=== PATIENT | male | born 1945 | race Caucasian/White ===

== ENCOUNTER 2016-05-04 10:23 | Outpatient (CLI) | payer MEDICARE, BC ==
[~2016-05-04] VITALS: Ht 180.3 cm; Wt 81.8 kg
--- NOTE | ~2016-05-04 | HEMODYNAMI ---
PATIENT:JONNA LOPEZ JR MEDICAL RECORD: [id number] : 43 LOCATION:[facility] ADMISSION DATE: 05/04/16 Generatedon:05/04/201613:39 Patient name: JONNA LOPEZ Patient #: [id number] SSN: [id number] : 1945 Date of study: 05/04/2016 Page: Of Hemodynamic Procedure Report Patient Data Patient Demographics Procedure consent was obtained First Name: JONNA Gender: Male Last Name: JESSICA Suffix: Patient #: [id number] : 1945 Age: 70 year(s) SSN: [id number] Race: Unknown Additional ID: [id number] Contact details [address]: [address] [place] [address] State: [place] City: [place] Zip code: [address] Past Medical History Allergies: No known allergies Admission Admission Data Admission Date: 05/04/2016 Admission Time: 10:23 Arrival Date: 05/04/2016 Arrival Time: 0:00 Admit Source: Other Insurance Payor: Medicare, Private health insurance Height (in.): 62 BSA: 1.83 (m2) Height (cm.): 157.48 BMI: 32.92 (kg/m2) Weight (lbs.): 180 Weight (kg.): 81.65 Lab Results Lab Result Date: 05/04/2016 Lab Result Time: 0:00 Biochemistry Name Units Result Min Max BUN mg/dl 33 --(----)-* 7 18 Creatinine mg/dl 1.4 --(----)*- 0.6 1.3 CBC Name Units Result Min Max Hemoglobin g/dl 12.5 *-(----)-- 13.5 17.5 Procedure Procedure Types Cath Procedure Diagnostic Procedure LHC LHC w/Coronaries PCI Procedure Coronary Stent Initial Miscellaneous Procedures Moderate Sedation up to 15 minutes Moderate Sedation up to 30 minutes Procedure Description Procedure Date Procedure Date: 05/04/2016 Procedure Start Time: 13:13 Procedure End Time: 13:35 Procedure Staff Name Function Fran Gross MD Performing Physician Nehal Maria RT Scrub Jackie Landaverde RN Nurse Jennie Burgos RT Monitor Procedure Data Cath Procedure Fluoroscopy Diagnostic fluoroscopy Total fluoroscopy Time: 4.4 time: 4.4 min min Diagnostic fluoroscopy Total fluoroscopy dose: 405 dose: 405 mGy mGy Contrast Material Contrast Material Type Amount (ml) Isovue 300 97 Entry Location Entry Primary Successful Side Size Upsize Upsize Entry Closure Succes sful Closure Location (Fr) 1 (Fr) 2 (Fr) Remarks Device Remarks Femoral Right 5 Fr 6 Fr Exoseal artery Short Estimated blood loss: 10 ml Diagnostic catheters Device Type Used For End Catheter Placement Cordis 5Fr JL 4.0 Procedure Catheter (MP) Cordis 5Fr 3DRC Catheter Procedure (MP) Cordis 5Fr Pigtail Procedure Catheter (MP) Procedure Complications No complications Procedure Medications Medication Administration Route Dosage Oxygen NC 2 l/min Lidocaine 2% added to field 20 Heparin Flush Bag added to field 2 bags (1000units/500ml NS) 0.9% NaCl I.V. 100 ml/hr Versed I.V. 1 mg Fentanyl I.V. 50 mcg Versed I.V. 1 mg Fentanyl I.V. 50 mcg Fentanyl I.V. 50 mcg Heparin Bolus I.V. 8000 units Fentanyl I.V. 50 mcg Plavix P.O. 600 mg Hemodynamics Rest BSA: 1.83 (m2) HGB: 12.5 (g/dl) O2 Consumption: Estimated: 208.42 (ml/min) O2 Co nsumption indexed: Estimated:113.89 (ml/min/m) Heart Rate: 66 (bpm) Pressure Samples Time Site Value (mmHg) Purpose Heart Use Rate(bpm) 13:17 AO 158/85(116) Snapshot 75 13:23 LV 149/31,40 Snapshot 72 13:24 AO 158/78(111) Pullback 75 13:24 LV 192/5,40 Pullback 75 Gradients Valve Time Site 1 Site 2 Mean SEP/DFP Peak To Heart Use (mmHg) (sec/min) Peak Rate (mmHg) (bpm) Aortic 13:24 LV AO 1 1 34 75 192/5,40 158/78(111) Calculations Valve P-P Mean Valve Index Valve Source Name Gradient Area Flow (cm2) Aortic 34 1 34 1 Snapshots Pre Cath Intra NCS Post Cath Vital Signs Time Heart Resp SPO2 NIBP (mmHg) Rhythm Pain Sedation Rate (ipm) (%) Status Level (bpm) 13:02:54 75 18 99 166/93(127) NSR 0 (11) 10(A) , No pain 13:07:16 75 15 99 157/90(129) NSR 0 (11) 10(A) , No pain 13:11:42 75 19 100 151/84(112) NSR 0 (11) 10(A) , No pain 13:15:54 75 18 100 143/84(116) NSR 0 (11) 10(A) , No pain 13:20:12 75 20 99 147/86(123) NSR 0 (11) 9(A) , No pain 13:24:28 75 15 100 149/90(117) NSR 0 (11) 9(A) , No pain 13:28:44 75 17 100 139/93(132) NSR 0 (11) 9(A) , No pain 13:32:56 75 17 99 139/88(117) NSR 0 (11) 10(A) , No pain Medications Time Medication Route Dose Verified Delivered Reason Notes Effectiveness by by 13:01:04 Oxygen NC 2 Fran Buffie used for l/min Martin Landaverde RN procedure 13:01:10 Lidocaine 2% added 20ml Fran Fran for local to vial Martin Gross MD anesthetic field 13:01:17 Heparin Flush added 2 Fran Fran used for Bag to bags Martin Gross MD procedure (1000units/500ml field NS) 13:01:27 0.9% NaCl I.V. 100 Fran Buffie Per physician ml/hr Martin Landaverde RN 13:11:01 Versed I.V. 1 mg Fran Buffie for sedation Martin Landaverde RN 13:11:10 Fentanyl I.V. 50 Fran Buffie for sedation mcg Martin Landaverde RN 13:15:47 Versed I.V. 1 mg Fran Buffie for sedation Martin Landaverde RN 13:15:52 Fentanyl I.V. 50 Fran Buffie for sedation mcg Martin Landaverde RN 13:19:59 Fentanyl I.V. 50 Fran Buffie for sedation mcg Martin Landaverde RN 13:28:08 Heparin Bolus I.V. 8000 Fran Buffie for verifi ed units Martin Landaverde RN anticoagulation with dr gross 13:30:30 Fentanyl I.V. 50 Fran Mejia for sedation mcg Martin Landaverde RN 13:38:16 Plavix P.O. 600 Fran Mejia for mg Martin Landaverde RN antiplatelet therapy Procedure Log Time Note 12:45:55 Patient Height : 157.48 inches 12:46:02 Patient Weight : 81.65 lbs 12:46:02 Admit Source: Other 12:46:12 Insurance Payor : Private health insurance, Medicare 12:46:32 Arrival Date: 05/04/2016 12:00:00 AM 12:46:49 Diagnostic Cath Status : Elective 12:47:19 Jackie Landaverde RN sent for patient. Start room use. 12:47:20 Time tracking: Regular hours 12:47:25 Plan of Care:Hemodynamics will remain stable., Cardiac rhythm will remain stable., Comfort level will be maintained., Respiratory function will remain adequate., Patient/ family verbilizes understanding of procedure., Procedure tolerated without complication., Recovers from procedure without complications.. 12:47:51 H&P Date Dictated: 04/23/2016 Within 30 days and on chart., H&P Addendum completed by physician on day of procedure. (MUST COMPLETE FOR ALL OUTPATIENTS). 12:50:14 Patient received from Outpatients to CCL 3 Alert and oriented. Tansferred to table in Supine position. 12:50:26 Warm blankets applied, and jt hugger turned on for patient comfort. 12:50:29 Correct patient and procedure confirmed by team. 12:50:31 Signed procedure consent form obtained from patient. 12:50:36 Pre-procedure instructions explained to patient. 12:50:38 Family in waiting room. 12:50:40 Patient NPO since Midnight. 12:51:22 Patient allergic to No known allergies 12:51:26 Is the patient allergic to Iodine/contrast media? No. 12:52:24 Lab Result : Hemoglobin 12.5 g/dl 12:52:24 Lab Result : Creatinine 1.4 mg/dl 12:52:24 Lab Result : BUN 33 mg/dl 12:59:33 Was the patient premedicated? No 12:59:36 Is patient on blood thinner?Yes 12:59:55 ACC The patient was administered the following blood thiners within the last 24 hours: Coumadin 13:00:11 Patient diabetic? Yes. 13:00:15 If diabetic: On Metformin? Yes 13:00:18 If on Metformin: Last Dose? 04/29/2016 13:00:24 Snore? Yes 13:00:26 Sleep apnea? No 13:00:35 Patient pain scale 0/10 ?. 13:00:48 IV patent on arrival in left forearm with 0.9% NaCl at [facility]. 13:00:55 Lab results completed and on chart. 13:00:59 Right groin area was prepped with chlora-prep and draped in sterile fashion 13:01:01 Alarms reviewed by R. N. 13:01:02 Sharps counted by scrub and verified by R.N. 13:01:04 Oxygen 2 l/min NC was given by Jackie Landaverde RN; used for procedure; 13:01:04 Physician paged 13:01:04 Physician arrived 13:01:06 --------ALL STOP TIME OUT------ 13:01:07 Final Timeout: patient, procedure, and site verified with staff and physician. All members of the team are in agreement. 13:01:09 Right groin site verified by team. 13:01:10 Lidocaine 2% 20ml vial added to field was given by Fran Gross MD; for local anesthetic; 13:01:13 Physical assessment completed. ASA score P 2 - A patient with mild systemic disease as per Fran Gross MD. 13:01:17 Heparin Flush Bag (1000units/500ml NS) 2 bags added to field was given by Fran Gross MD; used for procedure; 13:01:18 Sedation plan: IV Moderate Sedation Versed, Fentanyl 13:01:27 0.9% NaCl 100 ml/hr I.V. was given by Jackie Landaverde RN; Per physician; 13:01:31 Vital chart was started 13:01:50 Use device set Femoral Dx 13:01:52 Acist Syringe opened to sterile field. 13:01:52 Bag Decanter opened to sterile field. 13:01:53 Medline Cath Pack opened to sterile field. 13:01:54 Terumo 5Fr [place] Sheath opened to sterile field. 13:01:55 St Trace 260cm J .035 wire opened to sterile field. 13:01:56 Acist Hand Control opened to sterile field. 13:01:57 Acist Manifold opened to sterile field. 13:01:58 Diagnostic Infinity 5Fr Multipack catheter opened to sterile field. 13:01:59 Tegaderm 4 x 4 opened to sterile field. 13:03:34 ECG and BP/O2 sat monitors applied to patient. 13:03:35 Baseline sample Acquired. 13:03:41 Rhythm: paced 13:03:43 Full Disclosure recording started 13:08:57 Procedure started. 13:10:52 Zero performed for pressure channel P1 13:10:56 Zero performed for pressure channel P1 13:11:01 Versed 1 mg I.V. was given by Jackie Landaverde RN; for sedation; 13:11:10 Fentanyl 50 mcg I.V. was given by Jackie Landaverde RN; for sedation; 13:13:35 Local anesthetic to right femoral artery with Lidocaine 2% by Fran Gross MD.INITIAL ACCESS ONLY 13:13:50 A 5 Fr sheath was inserted into the Right Femoral artery 13:15:47 Versed 1 mg I.V. was given by Jackie Landaverde RN; for sedation; 13:15:52 Fentanyl 50 mcg I.V. was given by Jackie Landaverde RN; for sedation; 13:17:25 A Cordis 5Fr JL 4.0 Catheter (MP) was advanced over the wire and used for Procedure. 13:17:27 LCA angiography performed. 13:19:35 Catheter removed. 13:19:49 A Cordis 5Fr 3DRC Catheter (MP) was advanced over the wire and used for Procedure. 13:19:59 Fentanyl 50 mcg I.V. was given by Jackie Landaverde RN; for sedation; 13:20:55 RCA angiography performed. 13:21:05 Catheter removed. 13:23:29 A Cordis 5Fr Pigtail Catheter (MP) was advanced over the wire and used for Procedure. 13:23:37 LV gram done using WYLIE 13:24:23 EF : 60 % 13:24:26 Catheter removed. 13:25:21 Terumo 6Fr [place] Sheath opened to sterile field. 13:25:21 Fewzion BasixCompak Inflation Kit opened to sterile field. 13:25:22 Zhang BMW [place] 2 J-tip 300cm 0.014 guide wir opened to sterile field. 13:25:22 High Pressure Extension Tubing (Gross) opened to sterile field. 13:25:23 Cordis 6FR XBLAD 3.5 guide catheter opened to sterile field. 13:25:27 Proceeding to intervention. 13:25:39 Sheath upsized to a 6 Fr Short. 13:25:55 6 Fr XBLAD guide catheter was inserted over the wire 13:26:00 BMW wire advanced. 13:28:08 Heparin Bolus 8000 units I.V. was given by Jackie Landaverde RN; for anticoagulation; verified with dr gross 13:30:30 Fentanyl 50 mcg I.V. was given by Jackie Landaverde RN; for sedation; 13:31:35 Inflation Number: 1 A BreconRidgetronic Integrity 3.5 X 18 stent was prepped and advanced across the Prox CX. The stent was deployed at 14 JULIANNA for 0:11 (min:sec). 13:32:10 Stent balloon re-inserted over wire. 13:32:28 Stent catheter was removed intact over wire. 13:32:29 Wire removed. 13:32:30 Guide catheter removed. 13:32:43 Cordis 6Fr Exoseal opened to sterile field. 13:32:57 Sheath removed intact; hemostasis achieved with Exoseal to the Right Femoral artery. 13:33:00 Procedure ended.(Physican Out) 13:33:21 Fluoroscopy time 04.40 minutes. 13:33:28 Fluoroscopy dose: 405 mGy 13:33:28 Flurop Dose total: 405 13:33:33 Contrast amount:Isovue 300 97ml. 13:33:35 Sharps counted by scrub and verified by R.N. 13:33:38 Insertion/operative site no bleeding no hematoma. 13:33:43 Post Procedure Pulses reassessed and unchanged 13:33:47 Post-procedure physical assessment completed. ASA score P 2 - A patient with mild systemic disease as per Fran Gross MD. 13:33:50 Post procedure rhythm: unchanged. 13:33:53 Estimated blood loss: 10 ml 13:34:12 Post procedure instruction explained to patient.Patient verbalizes understanding. 13:34:43 Procedure type changed to Cath procedure, Diagnostic procedure, LHC, LHC w/Coronaries, PCI procedure, Coronary Stent Initial, Miscellaneous Procedures, Moderate Sedation up to 15 minutes, Moderate Sedation up to 30 minutes 13:34:45 Procedure and supply charges have been captured, reviewed, submitted and are correct. 13:35:08 Procedure Complication : No complications 13:35:11 Vital chart was stopped 13:35:12 See physician's report for complete and final results. 13:35:15 Report given to Outpatients. 13:35:21 Patient transfered to Outpatients with Stretcher. 13:35:23 Procedure ended. 13:35:23 Full Disclosure recording stopped 13:35:26 End room use (Document Last) 13:38:16 Plavix 600 mg P.O. was given by Jackie Landaverde RN; for antiplatelet therapy; Intervention Summary Intervention Notes Time ActionType Lesion and Equipment Action# Pressure Duration Attributes Used 13:31:35 Place stent Prox CX Medtronic 1 14 00:11 Integrity 3.5 X 18 stent Device Usage Item Name Manufacture Quantity Catalog Hospital Part Current Minimal L ot# / Number Charge Number Stock Stock Serial# Code Acist Acist 1 18765 994039 180802 855809 20 Syringe Medical Systems Inc Bag Microtek 1 2002S 266904 11188 883216 5 DecSnapguide Medical Inc. Medline Cardinal 1 [id number] 593277 06179 885206 5 Cath Pack Health Terumo 5Fr Terumo 1 [id number] 193617 654579 875318 [address] Trace St Trace 1 887237 356874 471032 455511 30 260cm J .035 wire Acist Hand Acist 1 27793 969936 688855 760101 5 VitalMedix Medical Systems Inc Acist Acist 1 07691 236528 737216 328147 5 Endeka [employer] Inc Diagnostic Cardinal 1 [id number] 118732 60308 309816 30 Infinity Health 5Fr Multipack catheter Tegaderm 4 3M 1 1626W 433835 094449 749916 5 x 4 Cordis 5Fr Cardinal 1 456379 5 JL 4.0 Health Catheter (MP) Cordis 5Fr Cardinal 1 707363 5 3DRC Health Catheter (MP) Cordis 5Fr Cardinal 1 150765 5 Pigtail Health Catheter (MP) Terumo 6Fr Terumo 1 [id number] 857989 778588 852569 40 [place] Sheath Merit Merit 1 EX8339 707303 321124 916195 15 BasixCompak Medical Inflation Kit Zhang BMW Zhang 1 [id number] 496760 130406 098135 5 [place] 2 Vascular J-tip 300cm 0.014 guide wir High Merit 1 [id number] 443784 55479 614123 10 Pressure Medical Extension Tubing (Gross) Cordis 6FR Cardinal 1 [id number] 652232 302673 002589 10 XBLAD 3.5 Health guide catheter Medtronic Medtronic 1 [id number] 136492 327274 1 0 [id number] Integrity 3.5 X 18 stent Cordis 6Fr Cardinal 1 EX600 012141 020520 215327 10 Synchrony Signature Audit [place] Stage Time Signature Unsigned Intra-Procedure 05/04/2016 Jennie Burgos 1:39:54 PM RT(R) Signatures Monitor : Jennie Burgos Signature : RT Date : Time : [address] [address]
[2016-05-04] MEDS ORDERED: PROTONIX40 MG PO (11:11)
[2016-05-04] MEDS ORDERED: PROSCAR5 MG PO (11:13)
[2016-05-04] MEDS ORDERED: METOPROLOL TART50 MG PO (11:13)
[2016-05-04] MEDS ORDERED: NORVASC10 MG PO (11:14)
[2016-05-04] MEDS ORDERED: NORMODYNE / TR200 MG PO (11:14)
[2016-05-04] MEDS ORDERED: LOZOL1.25 MG PO (11:15)
[2016-05-04] MEDS ORDERED: DIOVAN320 MG PO (11:15)
[2016-05-04] MEDS ORDERED: PRAVACHOL20 MG PO (11:15)
[2016-05-04] MEDS ORDERED: FLOMAX0.4 MG PO (11:15)
[2016-05-04] MEDS ORDERED: MOBIC7.5 MG PO (11:16)
[2016-05-04] MEDS ORDERED: ZYLOPRIM300 MG PO (11:16)
[2016-05-04] MEDS ORDERED: GLUCOPHAGE500 MG PO (11:17)
[2016-05-04] MEDS ORDERED: COUMADIN5 MG PO (11:18)
[2016-05-04] MEDS ORDERED: COUMADIN3 MG PO (11:18)
[2016-05-04 11:22] VITALS: BP 179/88; Ht 180.3 cm; Wt 81.8 kg
[2016-05-04 11:26] LABS: BASOPHILS 0.4 % (0.0-2.0); EOSINOPHILS 3.5 % (0-7); HEMATOCRIT 36.9 % (42.0-54.0); HEMOGLOBIN 12.5 g/dL (13.5-17.5); IMMATURE GRANULOCYTES 0.2 % (0-5); LYMPHOCYTES 19.3 % (15-50); MCH 30.6 pg (26.0-34.0); MCHC 33.9 g/dL (31.0-37.0); MCV 90.2 fL (80.0-100.0); MONOCYTES 14.7 % (2-11); NEUTROPHILS 61.9 % (40-80); PLATELET COUNT 158 10x3/uL (130-400); RBC 4.09 10x6/uL (4.20-6.10); RDW 15.2 % (11.5-14.5); WBC 5.7 10x3/uL (4.8-10.8)
[2016-05-04 11:44] LABS: ANION GAP 16.6 mmol/L (8-16); CALCIUM 8.2 mg/dL (8.5-10.1); CARBON DIOXIDE 24.7 mmol/L (21.0-32.0); CREATININE - SERUM 1.4 mg/dL (0.6-1.3); POTASSIUM - SERUM 3.3 mmol/L (3.5-5.1)
[2016-05-04 11:46] LABS: INR 1.12 (0.85-1.17); PROTIME 14.2 SECONDS (11.6-15.0)
--- NOTE | 2016-05-04 14:38 | NUR ---
1410-RIGHT GROIN- FEMSTOP IN PLACE, NO BLEEDING OR HEMATOMA NOTED
--- NOTE | 2016-05-04 15:30 | NUR ---
1530 FEMSTOP REMOVED WITH NO BLEEDING NO HEMATOMA NOTED. VSS CHEST PAIN IS DENIED. 1600 R/GROIN REMAINS CDI NO BLEEDING NO HEMATOMA NOTED. FAMILY AT SIDE 1730 PIV REMOVED FROM LEFT ARM WITH DRESSING APPLIED. PATIENT UP TO GET DRESSED FOR DISCHARGE. R/GROIN REMAINS CDI NO BLEEDING NO HEMATOMA NOTED.
[2016-05-04] MEDS ORDERED: PLAVIX75 MG PO (17:48)
[2016-05-04] MEDS ORDERED: BAYER CHEWABLE81 MG PO (17:48)
--- NOTE | 2016-05-04 18:19 | NUR ---
1745-IV D'C WITH CATH TIP INTACT, RIGHT GROIN- CDI, NO HEMATOMA OR BLEEDING NOTED, WRITTEN AND VERBAL D'C INSTRUCTIONS GIVEN TO PT AND SON, DENIES CHEST PAIN OR FURTHUR NEEDS
--- NOTE | 2016-05-25 08:17 | OP ---
PATIENT NAME: JONAN LOPEZ JR MEDICAL RECORD: [id number] :43 LOCATION:D.CAT ADMISSION DATE: SURGEON: JOSUE YEN M.D. DATE OF OPERATION: 05/04/2016 REFERRING PHYSICIAN: Cristhian Mcmahan MD. PROCEDURES PERFORMED: 1. Selective coronary angiography. 2. Left heart catheterization with ventriculogram. 3. PTCA and stent placed to the circumflex. INDICATION: A 70-year-old gentleman presents with recurrent angina and history of coronary artery disease. EQUIPMENTS USED: A 5-[place] JL4, Gama right, pigtail catheter. INTERVENTION: A 6-[place] XB LAD guide, BMW guide wire, 3.5 x 18 mm Integrity stent. TECHNIQUE: A 5-[place] sheath was inserted in retrograde fashion in the right common femoral artery. Next, selective coronary angiography was performed in standard views using 5-[place] JL4 and Gama right. Left heart catheterization performed using pigtail catheter. CORONARY ANATOMY: 1. Left main: Left main trunk is moderate in caliber. It gives rise to the LAD and circumflex. There is no obstruction. 2. LAD: This is a moderate-caliber vessel extending to the apex. The proximal vessel has been stented. The stent is widely patent. There is no evidence of restenosis. 3. Circumflex: This vessel is large in caliber and dominant. The proximal vessel demonstrates a ruptured plaque, represents an 80% stenosis. 4. Right coronary: This vessel is small and nondominant and diffusely diseased. 5. Left ventricle: Left ventricle appears normal in size and function. No wall motion abnormalities are seen. Estimated ejection fraction is 55%. DESCRIPTION OF INTERVENTION: A 6-[place] sheath was inserted in retrograde fashion in the right common femoral artery. Next, 100 units per kilogram of heparin was infused. A 6-[place] XB LAD guide was advanced and engaged in the left main coronary artery. Next, a BMW guide wire was placed in the distal vessel. A 3.5 x 18 mm Integrity stent was placed across the stenosis and deployed at 14 atmospheres. Injection shows stent to be widely patent with 0% residual stenosis. There is marked improvement in distal flow. At this point, the wire and guide were removed. IMPRESSION: Successful percutaneous transluminal coronary angioplasty and stenting to the circumflex with 0% residual stenosis. TRANSINT:[id number] Voice Confirmation ID: [id number] DOCUMENT ID: [id number] OPERATIVE REPORT [id number] JONNA LOPEZ JR, TIMOTHY E M.D. at 0817 CC: [id number] DICTATION DATE: 05/04/16 1339 EXECUTIVE RECRUITER: 05/04/165 DEP CLI 05/04/16 [place] [id number] [place] [id number]
== END 2016-05-04 18:00 | disposition home or self-care (01) ==
LOC: D.CATH 10:23
PROVIDERS: Internal Medicine Cardiovascular Disease
DX: I25.119 Atherosclerotic heart disease of native coronary artery with unspecified angina pectoris (principal)

== ENCOUNTER → 2016-07-26 10:03 | Outpatient (CLI) | payer MEDICARE, BC ==
[2016-05-04 11:22] VITALS: BMI 25.1
[~2016-07-26 10:03] MED LIST: BAYER CHEWABLE81 MG PO; COUMADIN3 MG PO; COUMADIN5 MG PO; DIOVAN320 MG PO; FLOMAX0.4 MG PO; GLUCOPHAGE500 MG PO; LOZOL1.25 MG PO; METOPROLOL TART50 MG PO; MOBIC7.5 MG PO; NORMODYNE / TR200 MG PO; NORVASC10 MG PO; PLAVIX75 MG PO; PRAVACHOL20 MG PO; PROSCAR5 MG PO; PROTONIX40 MG PO; ZYLOPRIM300 MG PO
== END | disposition home or self-care (01) ==
LOC: D.CT 10:03
DX: I10 Essential (primary) hypertension (principal)

== ENCOUNTER 2016-09-06 08:01 | Outpatient (CLI) | payer MEDICARE, BC ==
[~2016-09-06] VITALS: Ht 177.8 cm; Wt 81.8 kg
--- NOTE | ~2016-09-06 | HEMODYNAMI ---
PATIENT:JONNA LOPEZ JR MEDICAL RECORD: [id number] : 43 LOCATION:[facility] ADMISSION DATE: 09/06/16 Generatedon:09/06/201610:12 Patient name: JONNA LOPEZ Patient #: [id number] SSN: [id number] : 1945 Date of study: 09/06/2016 Page: Of Hemodynamic Procedure Report Patient Data Patient Demographics Procedure consent was obtained First Name: JONNA Gender: Male Last Name: JESSICA Suffix: [facility] Initial: BRANDIN : 1945 Patient #: [id number] Age: 70 year(s) Race: Unknown SSN: [id number] Additional ID: [id number] Contact details [address]: [address] [place] [address] State: [place] City: [place] Zip code: [address] Past Medical History Allergies: No known allergies Admission Admission Data Admission Date: 09/06/2016 Admission Time: 8:01 Lab Results Lab Result Date: 09/06/2016 Lab Result Time: 0:00 Biochemistry Name Units Result Min Max Creatinine mg/dl 1.7 --(----)-* 0.6 1.3 CBC Name Units Result Min Max Hemoglobin g/dl 12.6 -*(----)-- 13.5 17.5 Procedure Procedure Types Cath Procedure Peripheral Cath Diagnostic Procedure Cath Peripheral Renal Arteriogram Peripheral vascular Intervention Stent Stent-Arterial Inititial Procedure Description Procedure Date Procedure Date: 09/06/2016 Procedure Start Time: 9:30 Procedure End Time: 10:11 Procedure Staff Name Function Leta Salgado RT Monitor Pro Castro RT Scrub Jackie Landaverde RN Nurse Fran Gross MD Performing Physician Procedure Data Cath Procedure Fluoroscopy Diagnostic fluoroscopy Total fluoroscopy Time: 9.1 time: 9.1 min min Diagnostic fluoroscopy Total fluoroscopy dose: 978 dose: 978 mGy mGy Contrast Material Contrast Material Type Amount (ml) Isovue 300 173 Entry Location Entry Primary Successful Side Size Upsize Upsize Entry Closure Gaytan ccessful Closure Location (Fr) 1 (Fr) 2 (Fr) Remarks Device Remarks Femoral Right 5 Fr 6 Fr Mechanical artery Short Compression Estimated blood loss: 10 ml Diagnostic catheters Device Type Used For End Catheter Placement Cordis Tempo 5Fr UF Abdominal catheter aortogram Diagnostic Infinity 5Fr Renal JR 4 catheter arteriography without flush -selective Procedure Complications No complications Procedure Medications Medication Administration Route Dosage Oxygen NC 2 l/min Lidocaine 2% added to field 20 Heparin Flush Bag added to field 2 bags (1000units/500ml NS) 0.9% NaCl I.V. 200 ml/hr Versed I.V. 1 mg Fentanyl I.V. 50 mcg Versed I.V. 0.5 mg Fentanyl I.V. 25 mcg Heparin Bolus I.V. 8000 units Versed I.V. 0.5 mg Fentanyl I.V. 25 mcg Brilinta P.O. 180 mg Hemodynamics Rest HGB: 12.6 (g/dl) Heart Rate: 92 (bpm) Snapshots Pre Cath Intra NCS Post Cath Vital Signs Time Heart Resp SPO2 NIBP (mmHg) Rhythm Pain Sedation Rate (ipm) (%) Status Level (bpm) 9:14:12 74 15 99 194/110(153) Paced 0 (11) 10(A) , No pain 9:18:43 74 17 100 189/105(155) Paced 0 (11) 10(A) , No pain 9:23:03 75 16 98 182/101(145) Paced 0 (11) 10(A) , No pain 9:27:21 75 17 97 166/92(144) Paced 0 (11) 10(A) , No pain 9:31:43 75 16 100 164/96(122) Paced 0 (11) 9(A) , No pain 9:35:59 75 16 96 171/102(142) Paced 0 (11) 9(A) , No pain 9:41:10 75 15 99 171/92(117) Paced 0 (11) 9(A) , No pain 9:45:30 76 15 99 163/85(111) Paced 0 (11) 9(A) , No pain 9:49:46 75 16 99 164/95(125) Paced 0 (11) 9(A) , No pain 9:54:09 75 16 100 153/84(113) Paced 0 (11) 9(A) , No pain 9:58:27 75 17 100 155/87(106) Paced 0 (11) 9(A) , No pain 10:02:39 74 16 97 154/90(118) Paced 0 (11) 9(A) , No pain 10:06:53 75 16 100 162/95(119) Paced 0 (11) 10(A) , No pain 10:11:13 74 12 99 174/94(130) Paced 0 (11) 10(A) , No pain Medications Time Medication Route Dose Verified Delivered Reason Notes Effectiveness by by 9:19:43 Oxygen NC 2 Fran Buffie used for l/min Martin Landaverde RN procedure 9:19:51 Lidocaine 2% added 20ml Fran Fran for local to vial Martin Gross MD anesthetic field 9:19:57 Heparin Flush added 2 Fran Fran used for Bag to bags Martin Gross MD procedure (1000units/500ml field NS) 9:20:06 0.9% NaCl I.V. 200 Fran Buffie Per physician ml/hr Martin Landaverde RN 9:27:11 Versed I.V. 1 mg Fran Buffie for sedation Martin Landaverde RN 9:27:17 Fentanyl I.V. 50 Fran Buffie for sedation mcg Martin Landaverde RN 9:36:00 Versed I.V. 0.5 Fran Buffie for sedation mg Martin Landaverde RN 9:36:05 Fentanyl I.V. 25 Fran Buffie for sedation mcg Martin Landaverde RN 9:51:26 Heparin Bolus I.V. 8000 Fran Buffie for verifi ed units Martin Landaverde RN anticoagulation with dr gross 9:59:06 Versed I.V. 0.5 Fran Buffie for sedation mg Martin Landaverde RN 9:59:10 Fentanyl I.V. 25 Fran Buffie for sedation mcg Martin Landaverde RN 10:07:12 Brilinta P.O. 180 Fran Buffie for mg Martin Landaverde RN antiplatelet therapy Procedure Log Time Note 9:04:10 Pro ZARAGOZA(R) (CV) sent for patient. Start room use. 9:04:11 Time tracking: Regular hours 9:04:15 Plan of Care:Hemodynamics will remain stable., Cardiac rhythm will remain stable., Comfort level will be maintained., Respiratory function will remain adequate., Patient/ family verbilizes understanding of procedure., Procedure tolerated without complication., Recovers from procedure without complications.. 9:08:19 Patient received from Pre/Post Procedure Room to CCL 2 Alert and oriented. Tansferred to table in Supine position. 9:08:21 Warm blankets applied, and jt hugger turned on for patient comfort. 9:08:21 Correct patient and procedure confirmed by team. 9:08:22 Signed procedure consent form obtained from patient. 9:08:23 ECG and BP/O2 sat monitors applied to patient. 9:08:24 Full Disclosure recording started 9:12:03 Vital chart was started 9:15:21 Rhythm: sinus rhythm 9:15:36 H&P Date Dictated: 08/27/2016 Within 30 days and on chart., H&P Addendum completed by physician on day of procedure. (MUST COMPLETE FOR ALL OUTPATIENTS). 9:15:37 Pre-procedure instructions explained to patient. 9:15:37 Pre-op teaching completed and patient verbalized understanding. 9:15:39 Family in waiting room. 9:15:40 Patient NPO since Midnight. 9:15:47 Patient allergic to No known allergies 9:15:50 Is the patient allergic to Iodine/contrast media? No. 9:15:51 Is patient on blood thinner?Yes 9:15:54 ACC The patient was administered the following blood thiners within the last 24 hours: Coumadin 9:16:42 COUMADIN LAST DOSE 09/01/16 9:16:44 Patient diabetic? No. 9:18:47 Previous problem with sedation/anesthesia? No ? 9:18:49 Snore? No 9:18:50 Sleep apnea? No 9:18:50 Deviated septum? No 9:18:51 Opens mouth fully? Yes 9:18:52 Sticks out tongue? Yes 9:18:53 Airway obstruction? No ? 9:18:57 Dentures? No ? 9:19:00 Pre procedure: right dorsailis pedis pulse 2+ Normal; easily identifiable; not easily obliterated 9:19:02 Patient pain scale 0/10 ?. 9:19:10 IV patent on arrival in left hand with 0.9% NaCl at [facility]. 9:19:30 Lab Result : Creatinine 1.7 mg/dl 9:19:30 Lab Result : Hemoglobin 12.6 g/dl 9:19:35 Lab results completed and on chart. 9:19:38 Right groin area was prepped with chlora-prep and draped in sterile fashion 9:19:39 Alarms reviewed by R. N. 9:19:39 Sharps counted by scrub and verified by R.N. 9:19:43 Oxygen 2 l/min NC was administered by Jackie Landaverde RN; used for procedure; 9:19:46 Acist Syringe opened to sterile field. 9:19:47 Bag Decanter opened to sterile field. 9:19:47 Medline Cath Pack opened to sterile field. 9:19:48 Terumo 5Fr [place] Sheath opened to sterile field. 9:19:49 St Trace 260cm J .035 wire opened to sterile field. 9:19:50 Acist Hand Control opened to sterile field. 9:19:50 Acist Manifold opened to sterile field. 9:19:51 Lidocaine 2% 20ml vial added to field was administered by Fran Gross MD; for local anesthetic; 9:19:51 Tegaderm 4 x 4 opened to sterile field. 9:19:57 Heparin Flush Bag (1000units/500ml NS) 2 bags added to field was administered by Fran Gross MD; used for procedure; 9:20:06 0.9% NaCl 200 ml/hr I.V. was administered by Jackie Landaverde RN; Per physician; 9:21:01 Baseline sample Acquired. 9:24:57 Zero performed for pressure channel P1 9:25:00 Final Timeout: patient, procedure, and site verified with staff and physician. All members of the team are in agreement. 9:25:02 Right groin site verified by team. 9:25:14 Physical assessment completed. ASA score P 2 - A patient with mild systemic disease as per Fran Gross MD. 9:25:19 Sedation plan: IV Moderate Sedation Versed, Fentanyl 9:27:11 Versed 1 mg I.V. was administered by Jackie Landaverde RN; for sedation; 9:27:17 Fentanyl 50 mcg I.V. was administered by Jackie Landaverde RN; for sedation; 9:30:42 Procedure started. 9:30:46 Local anesthetic to right femoral artery with Lidocaine 2% by Fran Gross MD.INITIAL ACCESS ONLY 9:33:09 A 5 Fr sheath was inserted into the Right Femoral artery 9:33:58 A Cordis Tempo 5Fr UF catheter was advanced over the wire and used for Abdominal aortogram. 9:35:06 Catheter removed. 9:35:32 A Diagnostic Infinity 5Fr JR 4 catheter was advanced over the wire and used for Renal arteriography without flush -selective. 9:36:00 Versed 0.5 mg I.V. was administered by Jackie Landaverde RN; for sedation; 9:36:05 Fentanyl 25 mcg I.V. was administered by Jackie Landaverde RN; for sedation; 9:39:29 Catheter removed. 9:46:21 [place] BuzzDash Luge Straight 300cm 0.014 guide wire opened to sterile field. 9:46:21 Merit BasixCompak Inflation Kit opened to sterile field. 9:46:27 Medtronic Launcher 6Fr MEGAN 90 guide catheter opened to sterile field. 9:47:58 Sheath upsized to a 6 Fr Short. 9:48:37 Procedure type changed to Cath procedure, Peripheral Cath Diagnostic Procedure, Cath Peripheral, Renal Arteriogram, Peripheral vascular Intervention, Stent, Stent-Arterial Inititial 9:48:43 High Pressure Extension Tubing (Martin) opened to sterile field. 9:49:15 6 Fr megan 90CM guide catheter was inserted over the wire 9:51:26 Heparin Bolus 8000 units I.V. was administered by Jackie Landaverde RN; for anticoagulation; verified with dr gross 9:51:35 LUGE wire advanced. 9:53:59 Inflation number: 1 A [place] Sci [place] 1.5 X 15 balloon was prepped and advanced across the Ostial Renal, Left, then inflated to 10 JULIANNA for 0:18 (min:sec). 9:54:45 Balloon removed over the wire. 9:57:09 Inflation number: 2 A [place] Sci [place] 2.0 X 12 balloon was prepped and advanced across the Ostial Renal, Left, then inflated to 10 JULIANNA for 0:37 (min:sec). 9:57:55 Balloon removed over the wire. 9:59:06 Versed 0.5 mg I.V. was administered by Jackie Landaverde RN; for sedation; 9:59:10 Fentanyl 25 mcg I.V. was administered by Jackie Landaverde RN; for sedation; 10:00:17 Inflation Number: 3 A Medtronic Integrity 2.5 X 12 stent was prepped and advanced across the Ostial Renal, Left. The stent was deployed at 10 JULIANNA for 0:14 (min:sec). 10:00:56 Stent catheter was removed intact over wire. 10:00:59 Wire removed. 10:01:00 Guide catheter removed. 10:01:09 Cordis 6Fr Exoseal opened to sterile field. 10:02:07 Sheath removed intact; hemostasis achieved with Mechanical Compression to the Right Femoral artery. 10:02:17 Procedure ended.(Physican Out) 10:02:34 Fluoroscopy time 09.10 minutes. 10:02:38 Fluoroscopy dose: 978 mGy 10:02:38 Flurop Dose total: 978 10:02:42 Contrast amount:Isovue 300 173ml. 10:02:43 Sharps counted by scrub and verified by R.N. 10:02:49 Insertion/operative site no bleeding no hematoma. 10:02:52 Post-op/insertion site Right Femoral artery dressed using a 4 x 4 and Tegaderm. 10:02:56 Post right femoral artery:stable, clean and dry 10:02:57 Post Procedure Pulses reassessed and unchanged 10:03:01 Post-procedure physical assessment completed. ASA score P 2 - A patient with mild systemic disease as per Fran Gross MD. 10:03:03 Post procedure rhythm: unchanged. 10:03:07 Estimated blood loss: 10 ml 10:03:09 Post procedure instruction explained to patient.Patient verbalizes understanding. 10:03:10 Patient needs reinforcement of post procedure teaching. 10:04:03 Procedure Complication : No complications 10:04:05 See physician's report for complete and final results. 10:05:12 Terumo 6Fr [place] Sheath opened to sterile field. 10:07:12 Brilinta 180 mg P.O. was administered by Jackie Landaverde RN; for antiplatelet therapy; 10:07:20 Procedure and supply charges have been captured, reviewed, submitted and are correct. 10:10:15 Post right femoral artery:bleeding 10:10:20 Femstop placed over the right femoral artery at 182 mmHg. Hemostasis achieved. 10:10:34 St Trace Femstop Arch Gold opened to sterile field. 10:10:56 Vital chart was stopped 10:11:08 Report given to Pre/Post Procedure Room. 10:11:13 Patient transfered to Pre/Post Procedure Room with Stretcher. 10:11:17 Procedure ended. 10:11:17 Full Disclosure recording stopped 10:12:14 End room use (Document Last) Intervention Summary Intervention Notes Time ActionType Lesion and Equipment Action# Pressure Duration Attributes Used 9:53:59 Inflate Ostial [place] 1 10 00:18 balloon Renal, Left Sci [place] 1.5 X 15 balloon 9:57:09 Inflate Ostial [place] 2 10 00:37 balloon Renal, Left Sci [place] 2.0 X 12 balloon 10:00:17 Place stent Ostial Medtronic 3 10 00:14 Renal, Left Integrity 2.5 X 12 stent Device Usage Item Name Manufacture Quantity Catalog Number Hospital Part Current Mini mal Lot# / Charge Number Stock Stock Serial# Code Acist Acist 1 [id number] 642898 [id number] 20 Syringe Medical Systems Inc Bag Microtek 1 2002S 806659 95827 383787 5 Zila [employer] Inc. Medline Cardinal 1 [id number] 496981 08943 893066 5 Cath Pack Health Terumo 5Fr Terumo 1 [id number] 307267 333697 354744 [address] [place] [address] Trace St Trace 1 692146 212575 952765 982189 30 260cm J .035 wire Acist Hand Acist 1 18278 915908 482262 747502 5 Clone Medical Systems Inc Acist Acist 1 83470 530684 150407 701900 5 Everest Software Medical Systems Inc Tegaderm 4 3M 1 1626W 623267 919832 378924 5 x 4 Cordis Cardinal 1 [id number] 366754 401644 606913 10 Tempo 5Fr Health UF catheter Diagnostic Cardinal 1 [id number] 597843 806343 003944 5 [employer] Entertainment 5Fr JR 4 catheter [place] Sci [place] 1 [id number] 248379 155511 521089 5 Amrit [employer] Scientific Straight 300cm 0.014 guide wire Merit Merit 1 [id number] 897195 877608 151430 15 Zounds [employer] Medical Inflation Kit Medtronic Medtronic 1 [id number] 15206 365322 1 Launcher 6Fr MEGAN 90 guide catheter High Merit 1 [id number] 579630 58245 120744 10 Pressure Medical Extension Tubing (Gross) [place] Sci [place] 1 [id number] 510912 479093 529169 1 [place] Scientific 1.5 X 15 balloon [place] Sci [place] 1 [id number] 099449 532156 007253 1 [place] Scientific 2.0 X 12 balloon Medtronic Medtronic 1 [id number] 152309 671398 3 [id number] Integrity 2.5 X 12 stent Cordis 6Fr Cardinal 1 [id number] 008430 035992 133455 10 [employer] Sol [employer]ations Terumo 6Fr Terumo 1 [id number] 032363 533667 845480 [address] [place] [address] Trace [address] Trace 1 [id number] 172439 282830 367274 5 Femstop Arch Gold Signature Audit Canon Stage Time Signature Unsigned Intra-Procedure 09/06/2016 Leta 10:12:24 AM Counts RT(R) Signatures Monitor : Leta Signature : Counts RT Date : Time : [id number] [place] [address]
[2016-09-06 08:18] VITALS: BP 178/95; Ht 177.8 cm; Wt 81.8 kg
[2016-09-06 08:38] LABS: BASOPHILS 0.2 % (0-2); EOSINOPHILS 3.3 % (0-7); HEMATOCRIT 37.9 % (42.0-54.0); HEMOGLOBIN 12.6 g/dL (13.5-17.5); IMMATURE GRANULOCYTES 0.5 % (0-5); LYMPHOCYTES 18.8 % (15-50); MCH 30.5 pg (26.0-34.0); MCHC 33.2 g/dL (31.0-37.0); MCV 91.8 fL (80.0-100.0); MEAN PLATELET VOLUME 10.3 fL (7.4-10.4); MONOCYTES 10.4 % (2-11); NEUTROPHILS 66.8 % (40-80); PLATELET COUNT 154 10x3/uL (130-400); RBC 4.13 10x6/uL (4.20-6.10); RDW 15.4 % (11.5-14.5); WBC 8.2 10x3/uL (4.8-10.8)
[2016-09-06] MEDS ORDERED: LYRICA75 MG PO (08:41)
[2016-09-06 08:48] LABS: CALCIUM 8.3 mg/dL (8.5-10.1); CARBON DIOXIDE 25.4 mmol/L (21.0-32.0); CREATININE - SERUM 1.7 mg/dL (0.6-1.3); POTASSIUM - SERUM 3.4 mmol/L (3.5-5.1)
[2016-09-06 09:25] LABS: INR 1.07 (0.85-1.17); PROTIME 13.8 SECONDS (11.6-15.0)
--- NOTE | 2016-09-06 10:30 | NUR ---
RIGHT GROIN CDI, FEMSTOP IN PLACE, RIGHT FOOT WITH FAINT PULSE. NO HEMATOMA OR BLEEDING NOTED
--- NOTE | 2016-09-06 11:00 | NUR ---
RIGHT GROIN CDI WITH FEMSTOP IN PLACE, NO CHANGES, PT RESTING WITH EYES CLOSED. FAMILY AT SIDE
[2016-09-06] MEDS ORDERED: BRILINTA90 MG PO (12:44)
--- NOTE | 2016-09-06 14:15 | NUR ---
IV D'C WITH CATH TIP INTACT, WRITTEN AND VERBAL INSTRUCTIONS GIVEN TO PT AND FAMILY- UNDERSTOOD. DENIES PAIN OR NEEDS. D'C HOME WITH FAMILY
== END 2016-09-06 14:30 | disposition home or self-care (01) ==
LOC: D.CATH 08:01
PROVIDERS: Internal Medicine Cardiovascular Disease
DX: I70.1 Atherosclerosis of renal artery (principal); I10 Essential (primary) hypertension; Z01.812 Encounter for preprocedural laboratory examination